=== PATIENT | female | born 1935 | race Caucasian/White ===

== ENCOUNTER 2020-05-01 11:46 | Outpatient (CLI) | payer MEDICARE, SELFPAY ==
--- NOTE | ~2020-05-01 | MMUS_ITS ---
EXAMINATION: MM diagnostic jackelyn LT w tod, US breast LT complete HISTORY: Six-month follow-up of probable benign left breast mass at 9:00 periareolar area TECHNIQUE: ML, MLO and craniocaudal full field and craniocaudal spot Tomosynthesis views of left lina st were performed and synthetic 2-D images were generated. Rolled medial and rolled lateral cc views. CAD analysis was submitted and interpreted. High resolution breast ultrasound was performed. COMPARISON: 09/15/2019 diagnostic left digital mammogram and complete left breast ultrasound 05/16/2014 left digital screening mammogram. BREAST PARENCHYMAL COMPOSITION: There are scattered areas of fibroglandular density. FINDINGS: MAMMOGRAPHIC FINDINGS: No suspicious mass or architectural distortion or any malignant calcification, skin thickening or ret raction is noted mammographically. ULTRASOUND: 12:00 subareolar area: Oval circumscribed 5.8 x 3.6 x 4.8 mm sonolucency, diminished in size since me asurement of 8.1 x 3.7 x 7.3 mm on 09/15/2019; there is through transmission. This is likely a benign cyst. 9:00 subareolar area: Approximately 2.5 mm sonolucency with through transmission posterior enhancemen t consistent with small cyst, diminished in size from up to 5.6 mm dimension on 09/15/2019. IMPRESSION: 1. Benign probable cysts 2. Routine mammographic screening is recommended. BI-RADS Category 2: Benign finding(s). Reviewed, dictated and finalized at location A. IMPRESSION: 1. Benign probable cysts 2. Routine mammographic screening is recommended. BI-RADS Category 2: Benign finding(s).
== END 2020-05-01 11:47 | disposition home or self-care (01) ==
PROVIDERS: PCP Family Medicine; Visit Provider Family Medicine
DX: R92.8 Other abnormal and inconclusive findings on diagnostic imaging of breast (principal)
CPT/HCPCS: 76641; 77061; 77065; G0279

== ENCOUNTER 2020-08-25 08:20 | Outpatient (CLI) | payer MEDICARE, SELFPAY ==
--- NOTE | ~2020-08-25 | US_ITS ---
EXAMINATION: US carotid duplex BI DATE: 08/25/2020 09:20 INDICATION: Memory impairment TECHNIQUE: Grayscale, color Doppler, and pulsed Doppler images of the cervical carotid arteries were obtained. The degree of vessel stenosis is placed in one of the following categories: normal, <50%, 5 0-69%, >=70% but less than near-occlusion, near-occlusion, or total occlusion. Note that percent sten osis relative to normal distal artery lumen diameter is indirectly measured from velocity measurement s as described by Chuck, et al. Radiology 2003; [id number]:[id number]. Notes: Normal: Peak systolic velocity <125 centimeters/sec and no plaque <50%. Peak systolic velocity <125 ( EDV <40; ICA/CCA PSV ratio <2.0; used these factors only a tandem lesions or low cardiac output or co ntralateral disease) 50-69 %: PSV 125-230 (EDV 40-100; ratio 2-4) >= 70% but less than near occlusion: PSV greater than 230 (EDV > 100; ratio> 4.0) Near Occlusion: PSV that is variable; markedly narrowed lumen Occlusion: Absent flow on color/spectral Doppler and no lumen on romero scale. COMPARISON: Ultrasound dated 07/21/2007. FINDINGS: RIGHT: The right common carotid artery (CCA) peak systolic velocity (PSV) is 98 cm/s. The right internal car otid artery (ICA) PSV is 87 cm/s. The right ICA end-diastolic velocity (EDV) is 21 cm/s. The right IC A/CCA PSV ratio is 0.9. The external carotid artery (ECA) PSV is 126 cm/s. No flow is identified in t he right vertebral artery, possibly occluded. LEFT: The left CCA PSV is 61 cm/s. The left ICA PSV is 85 cm/s. The left ICA EDV is 16 cm/s. The left ICA/C CA PSV ratio is 1.4. The ECA PSV is 77 cm/s. There is antegrade flow in the left vertebral artery. IMPRESSION: 1. Less than 50% stenosis in the right internal carotid artery by sonographic criteria. 2. Less than 50% stenosis in the left internal carotid artery by sonographic criteria. 3: No flow identifiable in the right vertebral artery, possibly occluded. Reviewed, dictated and finalized at location A. IMPRESSION: 1. Less than 50% stenosis in the right internal carotid artery by sonographic c riteria. 2. Less than 50% stenosis in the left internal carotid artery by sonographic cr iteria. 3: No flow identifiable in the right vertebral artery, possibly occluded.
== END 2020-08-25 08:21 | disposition home or self-care (01) ==
PROVIDERS: PCP Family Medicine; Visit Provider Nurse Practitioner Family
DX: R41.3 Other amnesia (principal); I65.23 Occlusion and stenosis of bilateral carotid arteries
CPT/HCPCS: 93880

== ENCOUNTER 2021-03-14 09:20 | Emergency (ER) | payer MEDICARE, SELFPAY ==
--- NOTE | ~2021-03-14 | XR_ITS ---
EXAMINATION: XR chest 1V INDICATION: Pain after fall TECHNIQUE: AP view of the chest is obtained. COMPARISON: 04/15/2017 FINDINGS: There is chronic elevation of the right hemidiaphragm. Also seen is chronic airspace opacit y in the right paratracheal region, consistent with scarring. No acute airspace opacities are identif ied. The cardiomediastinal silhouette is normal. There is no pleural effusion or pneumothorax. Surgic al clips in the right upper quadrant are likely from prior cholecystectomy. IMPRESSION: 1. No acute cardiopulmonary abnormality. Reviewed, dictated and finalized at location B.
--- NOTE | ~2021-03-14 | XR_ITS ---
EXAMINATION: XR hip LT min 3V w AP pelvis DATE: 03/14/2021 10:14 INDICATION: Left hip pain. TECHNIQUE: An anteroposterior view of the pelvis and 3 views of left hip were obtained. COMPARISON: Pelvis radiograph 04/03/2008 FINDINGS: Bone alignment is normal. No fracture. There is mild osteoarthritis of the hips. There is m ild lumbar spondylosis. IMPRESSION: 1. Mild osteoarthritis of the hips. Reviewed, dictated and finalized at location A.
--- NOTE | ~2021-03-14 | CT_ITS ---
EXAMINATION: CT lumbar spine wo [facility] [place] EXAM DATE: 03/14/2021 10:07 INDICATION: Fall, head injury, back pain, neck pain. On blood thinners. TECHNIQUE: Spiral CT lumbar spine was performed without contrast. Axial, coronal and sagittal images of the lumbar spine were reviewed. The dose-length product (DLP) for this examination was 744.53 mGy- cm. The exposure was tailored according to patient size (auto mA exposure control), and iterative re construction (ASIR) was used as additional dose reduction technique. There is no prior study for marisol murray. FINDINGS: There is no evidence of acute lumbar fracture. There is no disc space widening or traumatic vertebra l body subluxation suspected. Vertebral body and disc heights are well-maintained. The vertebral b odies are aligned in the AP dimension. No spondylolysis. There is large hemangioma or Paget's disease of the L3 vertebral body. Smaller similar-appearing region in the L1 vertebral body. Vertebral body and disc heights are maintained. L5-S1 has moderate to severe left, moderate right facet arthropathy, moderate left and mild to modera te right neural foraminal stenosis. Less stenosis at other levels. Only mild lower lumbar central can al stenosis. Sacroiliac joints are intact. Extensive sigmoid diverticulosis. Large duodenal diverticu lum. Moderate aortic arterial sclerosis. There are cholecystectomy clips. A detailed level by level evaluation of spondylosis can be added as addendum if requested. IMPRESSION: 1. No acute lumbar findings. 2. L5-S1 moderate left neural foraminal stenosis. Less spondylosis other levels. 3. Lumbar hemangiomas versus Paget's disease. Reviewed, dictated and finalized at location A. IMPRESSION: 1. No acute lumbar findings. 2. L5-S1 moderate left neural foraminal stenosis. Less spondylosis other level s. 3. Lumbar hemangiomas versus Paget's disease.
--- NOTE | ~2021-03-14 | CT_ITS ---
EXAMINATION: CT cervical spine wo con DATE: 03/14/2021 10:07 INDICATION: Head injury. Neck pain. TECHNIQUE: Computed tomography (CT) of the cervical spine was performed without intravenous contrast. Automated exposure control and iterative reconstruction technique were employed. The dose-length pro duct was 169.77 mGy-cm. COMPARISON: None FINDINGS: There is radiation fibrosis at right lung apex. There is mild scarring at left lung apex. T here is right-sided pleural thickening. There is 12 degrees levoscoliosis of cervical spine. Vertebra l body heights are normal. There is mildly decreased disc height at C4-C5 and moderately decreased di sc height at C5-C6. The following disc levels are specifically discussed: C2-C3: There is no uncovertebral joint osteoarthritis. There is no facet joint osteoarthritis. There is no neural foraminal stenosis. There is no central canal stenosis. C3-C4: There is mild bilateral uncovertebral joint osteoarthritis. There is mild right facet joint os teoarthritis. There is no neural foraminal stenosis. There is no central canal stenosis. C4-C5: There is severe right and moderate left uncovertebral joint osteoarthritis. There is moderate facet joint osteoarthritis. There is mild right neural foraminal stenosis. There is no central canal stenosis. C5-C6: There is severe bilateral uncovertebral joint osteoarthritis. There is mild right facet joint osteoarthritis. There is mild bilateral neural foraminal stenosis. There is mild central canal stenos is. C6-C7: There is mild bilateral uncovertebral joint osteoarthritis. There is mild bilateral facet join t osteoarthritis. There is no neural foraminal stenosis. There is no central canal stenosis. C7-T1: There is no uncovertebral joint osteoarthritis. There is mild bilateral facet joint osteoarthr itis. There is no neural foraminal stenosis. There is no central canal stenosis. IMPRESSION: 1. No fracture. 2. Moderate cervical spondylosis. 3. Cervical levoscoliosis. Reviewed, dictated and finalized at location A.
--- NOTE | ~2021-03-14 | CT_ITS ---
EXAMINATION: CT brain wo con DATE: 03/14/2021 10:07 INDICATION: Head injury. TECHNIQUE: Computed tomography (CT) of the head was performed without intravenous contrast. The mA wa s adjusted according to patient size. Iterative reconstruction technique was employed. The dose-lengt h product was 605.33 mGy-cm. COMPARISON: Head CT 07/27/2019 FINDINGS: There are scattered areas of low attenuation in the cerebral white matter. There is no intr acranial hemorrhage, acute infarction, or abnormal intracranial mass lesion. The ventricles are scott l in size. There are likely changes of ocular lens replacement surgeries. The paranasal sinuses are c lear. The mastoid air cells are normal. There is left posterior scalp soft tissue swelling. IMPRESSION: 1. Stable mild nonspecific cerebral white matter disease, which likely represents chronic small vesse l ischemic disease. Reviewed, dictated and finalized at location A. IMPRESSION: 1. Stable mild nonspecific cerebral white matter disease, which likely represen ts chronic small vessel ischemic disease.
--- NOTE | ~2021-03-14 | XR_ITS ---
EXAMINATION: XR tibia fibula RT 2V EXAM DATE: 03/14/2021 10:14 INDICATION: Initial encounter following injury, with pain of the right tibia/fibula. TECHNIQUE: Right tibia/fibula frontal and lateral projections obtained and reviewed. There is no federico or study for comparison. FINDINGS: Right tibial and fibular shafts unremarkable. There are no acute fractures identified. Ri ght knee arthroplasty appears intact. Some soft tissue calcifications medially. IMPRESSION: No acute right tibia/fibula findings. Reviewed, dictated and finalized at location A.
[2021-03-14 09:16] VITALS: BP 150/68; PULSE 71; RESP 12; TEMP 36.5; O2SAT 99
[2021-03-14] MEDS: SODIUM CHLORIDE 0.9% IV 500 ML 999 ML IV CONT (09:44)
--- NOTE | 2021-03-14 09:51 | PC.NURSE ---
Pt to XY/CT via stretcher at this time.
[2021-03-14 09:56] LABS: Add Urine Microscopic? NO; Appearance Urine Clear (Clear); Bilirubin Urine Negative (Negative); Blood Urine Negative (Negative); Color Urine Yellow (Yellow); Glucose Urine UA Negative (Negative); Ketones Urine Negative (Negative); Leukocyte Esterase Ur Negative LEU/UL (Negative); Nitrate Urine Negative (Negative); Protein Urine Negative (Negative); Urobilinogen Urine Negative mg/dL (<2.0)
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
[2021-03-14 10:45] LABS: Basophils Absolute Auto 0.1 K/mm3 (0.0-0.1); Basophils Percent Auto 0.6 % (0.2-1.2); Eosinophils Absolute Auto 0.2 K/mm3 (0-0.3); Eosinophils Percent Auto 1.9 % (0-4.4); Hemoglobin 11.7 g/dL (12.0-15.0); Immature Granulocyte Absolute 0.06 K/mm3 (0.00-0.031); Immature Granulocyte Percent A 0.5 % (0-0.5); Lymphocytes Absolute Auto 1.09 K/mm3 (0.9-3.2); Lymphocytes Percent Auto 9.6 % (18.3-44.2); Mean Corpuscular HGB Conc 30.8 g/dl (32-36); Mean Corpuscular Hemoglobin 29.5 pg (26-34); Mean Platelet Volume 10.3 fl (7.4-10.4); Monocytes Absolute Auto 1.1 K/mm3 (0.1-0.6); Monocytes Percent Auto 9.7 % (2.6-8.5); Neutrophils Absolute Auto 8.8 K/mm3 (1.3-6.7); Neutrophils Percent Auto 77.7 % (45.5-73.1); Platelet Count Result 204 k/mm3 (150-375); Red Blood Count 3.96 M/mm3 (4.2-5.4); Red Cell Distribution Width 12.7 % (11.5-14.5); White Blood Count 11.4 K/mm3 (4.5-10.0)
[2021-03-14 10:55] LABS: Partial Thromboplastin Time 29.7 SECONDS (22.3-36.8)
[2021-03-14 11:22] VITALS: BP 156/68; PULSE 74; RESP 16; O2SAT 96
[2021-03-14 11:50] VITALS: BP 180/67; PULSE 73
[2021-03-14 11:51] VITALS: BP 186/76; PULSE 76
[2021-03-14 11:53] VITALS: BP 179/67; PULSE 76
[2021-03-14 12:00] LABS: Anion Gap 5 mmol/L (8-16); Blood Urea Nitrogen 18 mg/dL (7-17); Carbon Dioxide 29 mmol/L (22-30); Chloride 104 mmol/L (98-107); Estimated CRCL calculation 24 ml/min; Estimated Glomerular Filt Rate 39; Glucose 112 mg/dL (65-105); Potassium 4.5 mmol/L (3.4-5.0); Sodium 138 mmol/L (137-145)
[2021-03-14 13:24] VITALS: BP 157/63; PULSE 76; RESP 16; O2SAT 100
== END 2021-03-14 13:24 | disposition home or self-care (01) ==
PROVIDERS: Emergency Medicine Emergency Medical Services; Emergency Provider Emergency Medicine; PCP Family Medicine
DX: S09.90XA Unspecified injury of head, initial encounter (principal); S16.1XXA Strain of muscle, fascia and tendon at neck level, initial encounter; S76.012A Strain of muscle, fascia and tendon of left hip, initial encounter; S80.11XA Contusion of right lower leg, initial encounter; Z91.81 History of falling; R90.82 White matter disease, unspecified; Z85.3 Personal history of malignant neoplasm of breast; M47.812 Spondylosis without myelopathy or radiculopathy, cervical region; M48.07 Spinal stenosis, lumbosacral region; R93.7 Abnormal findings on diagnostic imaging of other parts of musculoskeletal system; M16.0 Bilateral primary osteoarthritis of hip; W06.XXXA Fall from bed, initial encounter
CPT/HCPCS: 36415; 51701; 70450; 71045; 72125; 72131; 73502; 73590; 80048; 81003; 85025; 85610; 85730; 96365; 99284; J0131; J7040; L0140

== ENCOUNTER 2021-10-22 11:13 | Outpatient (CLI) | payer MEDICARE, SELFPAY ==
[2021-10-22 12:11] LABS: Hematocrit 36.6 % (37.0-47.0); Hemoglobin 11.3 g/dL (12.0-15.0); Mean Corpuscular HGB Conc 30.9 g/dl (32-36); Mean Corpuscular Hemoglobin 30.5 pg (26-34); Mean Corpuscular Volume 98.9 fl (80-100); Mean Platelet Volume 10.6 fl (7.4-10.4); Platelet Count Result 184 k/mm3 (150-375); Red Cell Distribution Width 14.3 % (11.5-14.5); White Blood Count 7.3 K/mm3 (4.5-10.0)
[2021-10-22 12:16] LABS: Albumin Level 4.3 g/dL (3.5-5.1); Anion Gap 5 mmol/L (8-16); Blood Urea Nitrogen 18 mg/dL (7-17); Calcium 9.8 mg/dL (8.4-10.2); Carbon Dioxide 29 mmol/L (22-30); Chloride 104 mmol/L (98-107); Estimated Glomerular Filt Rate 29; Glucose 119 mg/dL (65-110); Phosphorus 3.9 mg/dL (2.5-4.5); Potassium 4.3 mmol/L (3.4-5.0); Sodium 138 mmol/L (137-145)
[2021-10-22 12:27] LABS: Parathyroid Intact 112.9 pg/mL (7.5-53.5)
[2021-10-22 12:47] LABS: Complement C3 109 mg/dL (88-165)
[2021-10-22 13:25] LABS: Erythrocyte Sedimentation Rate 17 mm/hr (0-20)
[2021-10-24 17:35] LABS: Kappa\\Lambda Light Chains 1.19 (0.26-1.65); Lambda Light Chain 38.8 mg/L (5.7-26.3)
[2021-10-24 18:54] LABS: Complement Total CH50 >60 U/mL (31-60)
== END 2021-10-22 11:14 | disposition home or self-care (01) ==
PROVIDERS: PCP Family Medicine; Visit Provider Internal Medicine Nephrology
DX: N18.32 Chronic kidney disease, stage 3b (principal)
CPT/HCPCS: 36415; 80069; 83883; 83970; 85027; 85652; 86038; 86160; 86162

== ENCOUNTER 2021-10-29 11:05 | Outpatient (CLI) | payer MEDICARE, SELFPAY ==
--- NOTE | ~2021-10-29 | US_ITS ---
EXAMINATION: US renal BI EXAM DATE: 10/29/2021 11:55 INDICATION: Stage 3b chronic kidney disease. TECHNIQUE: Multiple grayscale and Doppler images of the kidneys were obtained (by a technologist who performed the scan) and subsequently reviewed. Comparison is made to prior examination from 10/05/2013 . FINDINGS: Right kidney: There is normal contour and echogenicity. It measures 7.8 x 4.7 x 4.2 centimeters. The re is a 3 cm cyst. There is no hydronephrosis. Left kidney: There is normal contour and echogenicity. It measures 7.9 x 4.0 x 4.3 centimeters. The re are no focal renal lesions identified. There is no hydronephrosis. Bladder unremarkable. IMPRESSION: 1. Mild bilateral renal atrophy. Reviewed, dictated and finalized at location A. NG WRITER
== END 2021-10-29 11:06 | disposition home or self-care (01) ==
PROVIDERS: PCP Family Medicine; Visit Provider Internal Medicine Nephrology
DX: N18.30 Chronic kidney disease, stage 3 unspecified (principal); N26.1 Atrophy of kidney (terminal)
CPT/HCPCS: 76775

== ENCOUNTER 2021-11-03 09:43 | Outpatient (NON) | payer MEDICARE, SELFPAY ==
[2021-11-03 12:06] LABS: Add Urine Microscopic? NO; Appearance Urine Clear (Clear); Bilirubin Urine Negative (Negative); Blood Urine Negative (Negative); Color Urine Yellow (Yellow); Glucose Urine UA Negative (Negative); Ketones Urine Negative (Negative); Leukocyte Esterase Ur Negative LEU/UL (NEGATIVE); Nitrate Urine Negative (Negative); Protein Urine Negative (Negative); Specific Grav Ur 1.013 (1.001-1.035); Urobilinogen Urine Negative mg/dL (<2.0)
[2021-11-03 12:28] LABS: Creatinine Urine 65.7 mg/dL; Total Protein Urine Random 11 mg/dL; Ur Ttl Prot Creatinine Ratio 0.17 mg/mg (0-0.20)
[2021-11-09 12:48] LABS: Albumin 48 %; Creat 24 Hr 0.44 g/24 h (0.50-2.15); Measured Kappa Chains <1.00 mg/dL (<2.00); Measured Lambda Chains <1.00 mg/dL (<2.00); Pro/Creat Ratio 122 mg/g creat (<=114)
[2021-11-09 15:05] LABS: Protein,total, 24 Hr Ur 54 mg/24h
== END 2021-11-03 09:44 | disposition home or self-care (01) ==
PROVIDERS: PCP Family Medicine; Visit Provider Internal Medicine Nephrology
DX: N18.32 Chronic kidney disease, stage 3b (principal)
CPT/HCPCS: 81003; 82570; 84156; 86335

== ENCOUNTER 2022-07-03 10:07 | Emergency (ER) | payer MEDICARE, SELFPAY ==
[2022-07-03 10:29] VITALS: BP 103/66; PULSE 54; RESP 16; TEMP 36; O2SAT 100
--- NOTE | 2022-07-03 10:48 | ED.EAR ---
HPI - Ear Problem General Chief complaint: Ear Stated complaint: ear clogged Time Seen by Provider: 07/03/22 10:48 Source: patient Mode of arrival: ambulatory Limitations: no limitations History of Present Illness HPI Narrative: 87 yo F here with her son to have both ear canals irrigated. Pt seen by pet groomer today for hearing aid fitting and audilogist was unable to remove cerumen. All systems reviewed and negative except as noted above. Related Data Home Medications Medication Instructions Recorded Confirmed atorvastatin 20 mg tablet 20 mg PO DAILY 11/30/20 07/03/22 levothyroxine 88 mcg tablet 88 mcg PO DAILY 11/30/20 07/03/22 propranolol 10 mg tablet 10 mg PO Q12H 04/25/21 07/03/22 Allergies Allergy/AdvReac Type Severity Reaction Status Date / Time No Known Allergies Allergy Verified 07/03/22 10:24 Review of Systems Review of Systems: CONSTITUTIONAL: Denies fever, chills, or sweats. EYES: Denies visual changes, redness, or discharge. ENT: Denies rhinorrhea, congestion, sore throat, or otalgia. Impacted cerumen to both ears. CARDIOVASCULAR: Denies chest pain, palpitations, or edema. RESPIRATORY: Denies cough or dyspnea. GASTROINTESTINAL: Denies abdominal pain, nausea, vomiting, or diarrhea. GENITOURINARY: Denies dysuria or hematuria. SKIN: Denies rash or itching. MUSCULOSKELETAL: Denies back pain, joint pain, or myalgia. NEUROLOGIC: Denies headache, numbness, or weakness. PSYCHIATRIC: Denies anxiety or depression. All other systems reviewed are negative, except as documented in HPI. [facility] Past Medical History Medical History Age-related osteoporosis without current pathological fracture Breast cancer Generalized osteoarthritis of multiple sites Renal insufficiency Thyroid disorder Surgical History Surgical History H/O breast surgery Family History Family History Mother Heart disease Social History Social History Smoking status: Never smoker Alcohol intake: never Substance use: never Substance use type: does not use Gender identity (if verbalized by the patient): Female Comments At time of signature, agree with nursing past medical, surgical, social and family history. There is no relevant family history pertinent to the presenting complaint. Exam Narrative: GENERAL: This is a well-nourished, well-developed patient, in no apparent distress. HEAD: normocephalic, atraumatic. EYES: PERRL. Sclera clear/white. Vision is grossly intact. EARS: External ears normal, impacted cerumen to bilateral ear canals. NOSE: External nose normal NECK: Neck supple, non-tender without lymphadenopathy, masses or thyromegaly. CARDIOVASCULAR: Regular rate and rhythm without murmurs, gallops, or rubs. RESPIRATORY: Clear to auscultation. Breath sounds equal bilaterally. No wheezes, rales, or rhonchi. SKIN: warm, Dry, intact with no suspicious lesions or rash, good texture and turgor. NEURO: awake, alert, and oriented to person, place and time. There were no obvious focal neurologic abnormalities. EXTREMITIES: No joint tenderness, effusion, or edema noted. Course Course Level of Care: Express Care Visit Vital Signs Vital signs: Vital Signs Temperature 36.0 C L 07/03/22 10:29 Pulse Rate 54 L 07/03/22 10:29 Respiratory Rate 16 07/03/22 10:29 Blood Pressure 103/66 07/03/22 10:29 Pulse Oximetry 100 07/03/22 10:29 Oxygen Delivery Room Air 07/03/22 10:29 Temperature 36.0 C L 07/03/22 10:29 Pulse Rate 54 L 07/03/22 10:29 Respiratory Rate 16 07/03/22 10:29 Blood Pressure 103/66 07/03/22 10:29 Pulse Oximetry 100 07/03/22 10:29 Oxygen Delivery Room Air 07/03/22 10:29 Reviewed Procedures Ear Wax Removal Both Ears: Ear Wax Removal Date: 07/03
[2022-07-03] MEDS: HYDROGEN PEROXIDE 3% SOLN(*SP) 473 ML BOTTLE 50 ML IRRIGATION (12:36)
== END 2022-07-03 11:22 | disposition home or self-care (01) ==
PROVIDERS: Emergency Provider Nurse Practitioner Family
DX: H61.23 Impacted cerumen, bilateral (principal); M81.0 Age-related osteoporosis without current pathological fracture; M19.90 Unspecified osteoarthritis, unspecified site; Z85.3 Personal history of malignant neoplasm of breast; E03.9 Hypothyroidism, unspecified
CPT/HCPCS: 69210; 99213; A9270; G0463

== ENCOUNTER 2023-01-15 11:21 | Emergency (ER) | payer MEDICARE, SELFPAY ==
--- NOTE | ~2023-01-15 | XR_ITS ---
EXAMINATION: XR shoulder LT min 2V INDICATION: Left shoulder pain TECHNIQUE: Four views of the left shoulder are submitted. COMPARISON: None FINDINGS: Normal alignment. No fracture. There is mild osteoarthritis of the glenohumeral and acromio clavicular joints. Soft tissues are unremarkable. IMPRESSION: 1. No acute osseous abnormality. Reviewed, dictated and finalized at location B. AL DRILL PRESS SET UP OPERATOR
--- NOTE | ~2023-01-15 | XR_ITS ---
EXAMINATION: XR humerus LT INDICATION: Left arm pain TECHNIQUE: Two views of the left humerus are obtained. COMPARISON: None available FINDINGS: Alignment is normal. There is no fracture. There is mild osteoarthritis of the shoulder. Th e soft tissues are unremarkable. IMPRESSION: 1. No acute osseous abnormality. Reviewed, dictated and finalized at location B. Y MAN
--- NOTE | ~2023-01-15 | CT_ITS ---
EXAMINATION: CT brain wo con DATE: 01/15/2023 12:32 INDICATION: Minor head injury. TECHNIQUE: Computed tomography (CT) of the head was performed without intravenous contrast. The mA wa s adjusted according to patient size. Iterative reconstruction technique was employed. The dose-lengt h product was 1210.67 mGy-cm. COMPARISON: Head CT 03/14/2021 FINDINGS: There are scattered areas of low attenuation in the cerebral white matter. There is no intr acranial hemorrhage, acute infarction, or abnormal intracranial mass lesion. The ventricles are scott l in size. There is mild mucosal thickening in the ethmoid sinuses. There are likely changes of ocula r lens replacement surgeries. The mastoid air cells are normal. IMPRESSION: 1. Stable moderate nonspecific cerebral white matter disease, which likely represents chronic small v essel ischemic disease. Reviewed, dictated and finalized at location A. [employer] IMPRESSION: 1. Stable moderate nonspecific cerebral white matter disease, which likely repr esents chronic small vessel ischemic disease.
[2023-01-15 11:24] VITALS: BP 96/58; PULSE 78; RESP 14; TEMP 36.4; O2SAT 90
[2023-01-15 11:46] VITALS: BP 103/55; PULSE 68; RESP 17; O2SAT 100
[2023-01-15 12:01] VITALS: BP 100/45; PULSE 66; RESP 17; O2SAT 94
[2023-01-15 12:16] VITALS: BP 110/62; PULSE 68; RESP 15; O2SAT 100
--- NOTE | 2023-01-15 12:52 | PC.NURSE ---
patient refused orthostatic blood pressures
--- NOTE | 2023-01-15 13:00 | PC.NURSE ---
Pt refused Orthostatic Vital signs, Dr. Goodman notified of pt refusal.
--- NOTE | 2023-01-15 13:28 | ED.UPPEXIN ---
HPI - Extremity Injury (Upper) General Chief Complaint: Extremity Injury, Upper Stated Complaint: fall Time Seen by Provider: 01/15/23 11:57 History of Present Illness HPI narrative: Patient is an 87-year-old female who presents ER with left shoulder pain. Patient reports she tried to get out of bed when she suffered a mechanical fall landing on her left side. She has bruising and discomfort to her left mid humerus. Normal range of motion of the shoulder and elbow. No numbness or tingling. She has some achiness to her face like she struck her head. Denies losing consciousness. She reports some other generalized body aches as well. She is not supposed to ambulate without help according to son. Related Data Home Medications Medication Instructions Recorded Confirmed atorvastatin 20 mg tablet 20 mg PO DAILY 11/30/20 07/03/22 levothyroxine 88 mcg tablet 88 mcg PO DAILY 11/30/20 07/03/22 propranolol 10 mg tablet 10 mg PO Q12H 04/25/21 07/03/22 Allergies Allergy/AdvReac Type Severity Reaction Status Date / Time No Known Allergies Allergy Verified 07/03/22 10:24 Review of Systems Review of Systems: All systems reviewed & are unremarkable except as noted in HPI and below Constitutional: Constitutional: Denies chills, Denies fatigue and Denies fever(s) Cardiovascular: Cardiovascular: Denies chest pain, Denies rapid heart rate and Denies radiating jaw, neck or arm pain Respiratory: Respiratory: Denies cough and Denies dyspnea Gastrointestinal: Gastrointestinal: Denies abdominal pain, Denies nausea and Denies vomiting Genitourinary: Genitourinary: Denies nocturia and Denies dysuria Musculoskeletal: Musculoskeletal: Reports myalgias, Reports arthralgias and Denies joint swelling Integumentary/Breasts: Skin/Breast: Denies erythema and Denies rash Comments: left arm bruising Neurologic: Denies syncope, Denies headache(s), Denies focal weakness and Denies numbness PMFSH Past Medical History Medical History Age-related osteoporosis without current pathological fracture Breast cancer Generalized osteoarthritis of multiple sites Renal insufficiency Thyroid disorder Surgical History Surgical History H/O breast surgery Family History Family History Mother Heart disease Social History Social History Smoking status: Never smoker Alcohol intake: never Substance use: never Substance use type: does not use Gender identity (if verbalized by the patient): Female Exam Narrative: GENERAL: Well-appearing, well-nourished, and in no acute distress. HEAD: Normocephalic, atraumatic. EYES: PERRL and EOMI. ENT: Mucous membranes moist. CHEST: Clear to auscultation. No respiratory distress. HEART: Regular rate and rhythm. Normal peripheral pulses. EXTREMITIES: Normal range of motion. No edema. No point tenderness at the left shoulder/elbow with normal strength. SKIN: Warm, dry, no rash. Bruising left posterior mid humerus. NEURO: Alert and oriented x3. PSYCH: Normal mood and affect. Course Course Emergency Course: Patient and family informed of results. Patient refuses to perform orthostatic vital signs. She will be discharged. She had no other complaints. Vital Signs Vital signs: Vital Signs Temperature 97.6 F 01/15/23 11:24 Pulse Rate 78 01/15/23 11:24 Respiratory Rate 14 01/15/23 11:24 Blood Pressure 96/58 L 01/15/23 11:24 Pulse Oximetry 90 01/15/23 11:24 Oxygen Delivery Room Air 01/15/23 11:24 Temperature 97.6 F 01/15/23 11:24 Pulse Rate 78 01/15/23 11:24 Respiratory Rate 14 01/15/23 11:24 Blood Pressure 96/58 L 01/15/23 11:24 Pulse Oximetry 90 01/15/23 11:24 Oxygen Delivery Room Air 01/15/23 11:24 Discharge Plan Discharge Clinical
[2023-01-15] MEDS: ACETAMINOPHEN 325 MG TABLET 650 MG PO (14:08)
[2023-01-15 14:30] VITALS: BP 132/87; PULSE 74; RESP 15; TEMP 37.1; O2SAT 100
== END 2023-01-15 14:35 | disposition home or self-care (01) ==
PROVIDERS: Emergency Provider Emergency Medicine; PCP Family Medicine
DX: S40.022A Contusion of left upper arm, initial encounter (principal); M19.90 Unspecified osteoarthritis, unspecified site; Z85.3 Personal history of malignant neoplasm of breast; W06.XXXA Fall from bed, initial encounter
CPT/HCPCS: 70450; 73030; 73060; 99284; A9270

== ENCOUNTER 2023-03-04 09:48 | Outpatient (CLI) | payer MEDICARE, SELFPAY ==
--- NOTE | ~2023-03-04 | US_ITS ---
EXAMINATION: US venous doppler [facility] DATE: 03/04/2023 10:35 INDICATION: Left lower limb pain TECHNIQUE: Hernandez scale images without and with compression and Doppler images of the left lower extrem ity veins were obtained. COMPARISON: None FINDINGS: The left common femoral vein, profunda femoral vein, femoral vein, popliteal vein, peroneal trunk, posterior tibial veins, and greater saphenous vein are patent. IMPRESSION: 1. Patent left lower extremity veins. No evidence of deep venous thrombosis. Reviewed, dictated and finalized at location L.
== END 2023-03-04 09:49 | disposition home or self-care (01) ==
PROVIDERS: PCP Family Medicine; Visit Provider Nurse Practitioner Family
DX: M79.662 Pain in left lower leg (principal)
CPT/HCPCS: 93971